=== PATIENT | female | born 1970 | race Caucasian/White ===

== ENCOUNTER 2023-07-24 10:51 | Emergency (ER) | payer OTHER ==
[~2023-07-24] VITALS: Ht 162.6 cm; Wt 63.5 kg
[2023-07-24] MEDS ORDERED: ASPIRIN 325 MG TABLET ONE (11:20)
[2023-07-24] MEDS ORDERED: NITROGLYCERIN 0.4 MG/TAB BOTTLE ONE (11:20)
[2023-07-24 11:29] LABS: BASOPHILS # (AUTO) 0.1 K/uL (0.0-0.2); BASOPHILS % (AUTO) 1.2 % (0.0-2.0); EOSINOPHILS # (AUTO) 0.1 K/uL (0.0-0.7); EOSINOPHILS % (AUTO) 2.1 % (0.0-6.0); HEMATOCRIT 38 % (33-45); HEMOGLOBIN 13.5 g/dL (11.5-14.8); LYMPHOCYTES # (AUTO) 2.2 K/uL (0.8-4.8); LYMPHOCYTES % (AUTO) 34.5 % (20.0-44.0); MEAN CORPUSCULAR HEMOGLOBIN 32 PG (26.0-33.0); MEAN CORPUSCULAR HGB CONC 35 g/dl (31.0-36.0); MEAN CORPUSCULAR VOLUME 92 fL (82-100); MONOCYTES # (AUTO) 0.4 K/uL (0.1-1.30); MONOCYTES % (AUTO) 5.7 % (2.0-12.0); NEUTROPHILS # (AUTO) 3.6 K/uL (1.8-8.9); NEUTROPHILS % (AUTO) 56.5 % (43.0-81.0); PLATELET COUNT (AUTO) 244 K/uL (150-450); RED BLOOD CELL COUNT(AUTO) 4.18 MIL/uL (4.0-5.2); WHITE BLOOD COUNT (AUTO) 6.4 K/uL (4.3-11.0)
[2023-07-24 11:46] LABS: CALCIUM, SERUM 9.4 mg/dL (8.5-10.1); CARBON DIOXIDE 27 mmol/L (21-32); CHLORIDE 100 mmol/L (98-107); CREATININE 0.7 mg/dL (0.6-1.3); GLUCOSE 117 mg/dL (74-106); NT-PRO BNP 26 pg/mL (0-125); POTASSIUM 3.4 mmol/L (3.5-5.1); SODIUM SERUM 137 mmol/L (136-145); UREA NITROGEN, BLOOD 15 mg/dL (7-18)
[2023-07-24] MEDS: ASPIRIN 325 MG TABLET PO ONE (11:52)
[2023-07-24] MEDS: NITROGLYCERIN 0.4 MG/TAB BOTTLE SL ONE (11:53)
[2023-07-24] MEDS ORDERED: MECLIZINE HCL 25 MG TABLET ONE (12:31)
[2023-07-24] MEDS: MECLIZINE HCL 12.5 MG TABLET PO ONE (12:33)
[2023-07-24 12:37] LABS: APPEARANCE,URINE CLEAR (CLEAR); BILIRUBIN,URINE NEGATIVE (NEGATIVE); BLOOD, URINE TRACE-INTA Ery/uL (NEGATIVE); COLOR,URINE YELLOW (YELLOW); KETONES,URINE NEGATIVE (NEGATIVE); LEUKOCYTE ESTERASE ,URINE 1+ (NEGATIVE); NITRITE, URINE NEGATIVE (NEGATIVE); PH,URINE 6.5 (5.0-8.0); PROTEIN,URINE NEGATIVE (NEGATIVE); UGLUCOSE NEGATIVE (NEGATIVE); UROBILINOGEN,URINE 0.2 EU/dL (0.2)
[2023-07-24 12:52] LABS: ADD URINE CULTURE YES; BACTERIA,URINE Rare /HPF (None Seen); RBC,URINE 0-2 /HPF (0-2); SQUAMOUS EPITHELIAL CELL,UR None Seen /HPF (None Seen); WBC,URINE 0-2 /HPF (0-3)
[2023-07-24] MEDS ORDERED: CEPH250C PO (13:58)
[2023-07-24] MEDS ORDERED: GUAI1TBM19 PO (13:58)
[2023-07-24 14:18] VITALS: BP 132/68; TEMP 97.9; O2SAT 98
== END 2023-07-24 14:18 | disposition home or self-care (01) ==
LOC: ER 10:52
DX: R06.02 Shortness of breath (principal); R09.89 Other specified symptoms and signs involving the circulatory and respiratory systems
CPT/HCPCS: 99285; 71045; 93005 ×3; 85025; 80048; 87086; 85378; 81001; 36415; 84484 ×2; 83880; J8597